=== PATIENT | female | born 1965 | race Caucasian/White ===

== ENCOUNTER 2016-09-21 14:45 | Emergency (ER) | payer OTHER ==
[~2016-09-21] VITALS: Ht 165.1 cm; Wt 92.7 kg
[~2016-09-21 14:45] MED LIST: ALLEGRA180 MG PO; CALCIUM500 M1 PO; CENTRAL VITE T1 EACH PO; CRESTOR10 MG PO; ELMIRON100 MG PO; IRON18 MG PO; LEXAPRO20 MG PO; LOVASTATIN40 MG PO; LYRICA150 MG PO; LYRICA300 MG PO; METOPROLOL SUCC25 MG PO; METOPROLOL TART25 MG PO; MIRAPEX1 MG PO; PROSED-DS1 TABLET PO; TOPAMAX100 MG PO; TOPAMAX50 MG PO; TYLENOL EXTRA500 MG PO; VESICARE10 MG PO; ZOLOFT100 MG PO
[2016-09-21] MEDS ORDERED: ALLI60 MG PO (15:34)
[2016-09-21] MEDS ORDERED: ULTRAM50 MG PO (19:00)
[2016-09-21 19:42] VITALS: BP 127/98
== END 2016-09-21 19:43 | disposition home or self-care (01) ==
LOC: EXP 14:45 → EME 14:45 → EXP 19:43
DX: M25.561 Pain in right knee (principal); W19.XXXA Unspecified fall, initial encounter; Z91.81 History of falling
CPT/HCPCS: 73560; 73590; 73600; 73630; 99281; 99285; J2270

== ENCOUNTER 2016-10-13 12:07 | Day surgery (SDC) | payer OTHER ==
[~2016-10-13] VITALS: Ht 165.1 cm; Wt 92.5 kg
[~2016-10-13 12:07] MED LIST changes: +ALLI60 MG PO; +CITRACAL + BON1 EACH PO; +COLACE100 MG PO; +FISH OIL 1,0001 EAC7 PO; +LO-DOSE ASPIRIN81 M2 PO; +MIRAPEX0.5 MG PO; +NUCYNTA100 MG PO; +ROXIFOL-D TA500 UNIT PO; +SIMETHICONE125 M1 PO; +ULTRAM50 MG PO; +VALIUM5 MG PO; +WELLBUTRIN SR150 MG PO; +ZANAFLEX4 MG PO
[2016-10-13 12:37] VITALS: BP 110/72
[2016-10-13 17:25] VITALS: BP 116/63
[2016-10-13 17:50] VITALS: BP 111/71
== END 2016-10-13 18:05 | disposition home or self-care (01) ==
LOC: SDC 12:07
PROC: 0HB2XZZ Excision of Right Ear Skin, External Approach (ICD-10-PCS; principal; 2016-10-13)
DX: H60.01 Abscess of right external ear (principal); H60.11 Cellulitis of right external ear; I49.3 Ventricular premature depolarization; M79.2 Neuralgia and neuritis, unspecified; F17.210 Nicotine dependence, cigarettes, uncomplicated
CPT/HCPCS: 88305; J0330; J0461; J1100; J2250; J2405; J3010